=== PATIENT | male | born 1965 | race Caucasian/White ===

== ENCOUNTER 2024-06-17 08:25 | Outpatient (OUT) | payer OTHER, SELFPAY ==
--- NOTE | 2024-06-17 08:36 | CT_ITS ---
[address] [address] Patient Name: JILL GANDHI MRN: [id number] date: 1965 Sex: M Assigned Patient Location: CT Current Patient Location: Accession/Order Number: [id number] Exam Date: 06/17/2024 08:45 Report Date: 06/18/2024 06:19 At the request of: HASMUKH DUNLAP Procedure: CT lung screening low-dose EXAMINATION: CT lung screening low-dose HISTORY: Smoker COMPARISON: No relevant comparison available. TECHNIQUE: Axial, Coronal, and Sagittal images were created without the administration of IV contrast material. Dose reduction techniques were achieved by using automated exposure control and/or adjustment of mA and/or kV according to patient size and/or use of iterative reconstruction technique. FINDINGS: LUNGS: 1.6 cm rounded nodule with lobular margins within left lower lobe superior segment adjacent the spine, with thin curvilinear stranding opacity/scarring extending to the lateral left lung base. Multiple small very faint groundglass opacities scattered within the lungs; infiltrates versus atelectasis. PLEURA: No mass, effusion, or pneumothorax. VASCULATURE: No abnormality. JENIFFER: Calcified left hilar lymph nodes suggestive of chronic granulomatous disease. MEDIASTINUM: No mass or pathologic adenopathy. CARDIAC: No enlargement, pericardial thickening, or pericardial effusion. Coronary Artery calcifications: Coronary calcifications are mild. AORTA: No aneurysm or dissection. CHEST WALL: No mass or axillary adenopathy BONES: No bone lesion or fracture. LIMITED ABDOMEN: No suspicious findings. Limited images of the upper abdomen. OTHER: Negative. CT/CT lung screening low-dose IMPRESSION: 1. Lung-RADS Category 4B- Suspicious. Findings for which additional diagnostic testing and/ or tissue sampling is recommended. Chest CT with or without contrast, PET/CT and/ or tissue sampling depending on the * probability of malignancy and comorbidities. PET/CT may be used when there is a >= 8 mm solid component. 2. Left lower lobe 1.6 cm lobular mass; neoplasm versus granuloma. PET/CT recommended for further evaluation. Electronically authenticated by: JANETH LAMBERT Date: 06/18/2024 06:19
== END 2024-06-17 08:26 | disposition home or self-care (01) ==
LOC: CT 08:30
PROVIDERS: PCP Nurse Practitioner; Visit Provider Nurse Practitioner
DX: Z12.2 Encounter for screening for malignant neoplasm of respiratory organs (principal); X39.01XA Exposure to radon, initial encounter
CPT/HCPCS: 71271

== ENCOUNTER 2024-07-29 15:17 | Outpatient (OUT) | payer OTHER, SELFPAY ==
--- OUTSIDE RECORDS SUMMARY | 2024-07-29 15:39 | XMS_ITS | CCD ---
Author Organization [facility] Care Team Providers Care [employer] Tailor Name Role Phone Valerio Varma DO Primary Care Provider VALERIO VARMA Attending Unavailable FURLONG, VALERIO Mary Referring Unavailable FURLONG, VALERIO Mary Primary Care Unavailable FURLONGVALERIO Referring Unavailable FURLOCHASE, VALERIO Mary Primary Care Unavailable Guadalupe, Mikayla Chavez Primary Care Physician [phone] Guadalupe, Mikayla Chavez Attending Unavailable Guadalupe, Mikayla Chavez Admitting Unavailable Guadalupe, Mikayla L Attending Unavailable Guadalupe, Mikayla L Admitting Unavailable Guadalupe, Mikayla L Attending Unavailable Guadalupe, Mikayla L Attending Unavailable Guadalupe, Mikayla L Attending Unavailable Guadalupe, Mikayla L Attending Unavailable Guadalupe, Mikayla L Admitting Unavailable Guadalupe, Mikayla L Admitting Unavailable Guadalupe, Mikayla L Attending Unavailable Guadalupe, Mikayla L Attending Unavailable Medications Current Medications Medication Drug Class(es) Dates Sig (Normalized) Sig (Original) amitriptyline hydrochloride 75 mg oral tablet (15 sources) Tricyclic Antidepressant Start: 01-30-2024 take 1 tablet by mouth once daily at bedtime amitriptyline 75 mg oral tablet 75 mg = 1 tab(s), Oral, Once a day (at bedtime), # 90 tab(s), Refills(s) 4, Pharmacy: [id number], 179.3, cm, 01/04/24 11:40:00 EDT, Height/Length Dosing, 74.3, kg, 01/04/24 11:40:00 EDT, Weight Dosing Start Date: 01/30/24 Status: Ordered Start: 11-27-2023 take 1 tablet by gagandeep th once daily at bedtime amitriptyline 75 mg oral tablet 75 mg = 1 tab(s), Oral, Once a day (at bedtime), # 30 tab(s), Refills(s) 0 Start Date: 11/27/23 Status: Ordered Start: 07-04-2023 End: 09-08-2023 take 1 tablet by mouth once daily amitriptyline (ELAVIL) 75 mg tablet Take 1 tablet (75 mg total) by mouth nightly. 90 tablet 0 09/08/2023 Active busPIRone hydrochloride 15 mg oral tablet (10 sources) Start: 01-30-2024 take 1 tablet by mouth three times daily busPIRone 15 mg Tab 15 mg = 1 tab(s), Oral, TID, # 270 tab(s), Refills(s) 4, Pharmacy: [id number], 179.3, cm, 01/04/24 11:40:00 EDT, Height/Length Dosing, 74.3, kg, 01/04/24 11:40:00 EDT, Weight Dosing Start Date: 01/30/24 Status: Ordered Start: 11-27-2023 take 1 tablet by gagandeep three times daily busPIRone 15 mg Tab 15 mg = 1 tab(s), Oral, TID, # 90 tab(s), Refills(s) 0 Start Date: 11/27/23 Status: Ordered Start: 09-08-2023 End: 09-08-2023 take 1 tablet by mouth three times daily busPIRone (BUSPAR) 15 mg tablet Take 1 tablet (15 mg total) by mouth 3 (three) times a day. 270 tablet 0 09/08/2023 Active ibuprofen 800 mg oral tablet (3 sources) Nonsteroidal Anti-inflammatory Drug Start: 10-23-2023 take 1 tablet by mouth every eight hours as needed for pain ibuprofen (MOTRIN) 800 mg tablet Take 1 tablet (800 mg total) by mouth every 8 (eight) hours as needed for pain. 90 tablet 2 10/23/2023 Active omeprazole 40 mg delayed release oral capsule (2 sources) Proton Pump Inhibitor Start: 01-04-2024 take 1 capsule by mouth once daily omeprazole 40 mg Cap-DR 40 mg = 1 cap(s), Oral, Daily, # 90 cap(s), Refills(s) 3, Pharmacy: [id number], 179.3, cm, 01/04/24 11:40:00 EDT, Height/Length Dosing, 74.3, kg, 01/04/24 11:40:00 EDT, Weight Dosing Start Date: 01/04/24 Status: Ordered 24 hr propranolol hydrochloride 60 mg extended release oral capsule (10 sources) beta-Adrenergic Wes Start: 01-30-2024 take 1 capsule by mouth once daily propranolol 60 mg Cap-ER 60 mg = 1 cap(s), Oral, Daily, # 90 cap(s), Refills(s) 4, Pharmacy: [id number], 179.3, cm, 01/04/24 11:40:00 EDT, Height/Length Dosing, 74.3, kg, 01/04/24 11:40:00 EDT, Weight Dosing Start Date: 01/30/24 Status: Ordered Start: 11-27-2023 take 1 capsule by [facility] once daily propranolol 60 mg Cap-ER 60 mg = 1 cap(s), Oral, Daily, Refills(s) 0 Start Date: 11/27/23 Status: Ordered Start: 07-13-2023 End: 09-08-2023 take 1 capsule by mouth every twenty-four hours in the morning propranolol LA (INDERAL LA) 60 mg 24 hr capsule Take 1 capsule (60 mg total) by mouth in the morning. 90 capsule 1 09/08/2023 Active sertraline 100 mg oral tablet (10 sources) Serotonin Reuptake Inhibitor Start: 12-26-2023 take 1 tablet by mouth once daily Zoloft 100 mg Tab 100 mg = 1 tab(s), Oral, Daily, # 90 tab(s), Refills(s) 1, Pharmacy: [id number], 179.3, cm, 11/27/23 9:30:00 EDT, Height/Length Dosing, 75.8, kg, 11/27/23 9:30:00 EDT, Weight Dosing Start Date: 12/26/23 Status: Ordered Start: 11-27-2023 take 1 tablet by [facility] once daily Zoloft 100 mg Tab 100 mg = 1 tab(s), Oral, Daily, # 30 tab(s), Refills(s) 0 Start Date: 11/27/23 Status: Ordered Start: 09-08-2023 End: 02-09-2024 take 1 tablet by mouth in the morning sertraline (ZOLOFT) 100 mg tablet Take 1 tablet (100 mg total) by mouth in the morning. 90 tablet 0 09/08/2023 Active SUMAtriptan (9 sources) Serotonin-1b and Serotonin-1d Receptor Agonist Start: 01-23-2024 SUMAtriptan 6 mg/0.5 mL SubQ Dolly 6 mg, SubCutaneous, Once, PRN Migraine headache, may repeat once in 1 hour if needed, # 2 EA, Refills(s) 5, Pharmacy: [facility], 179.3, cm, 01/04/24 11:40:00 EDT, Height/Length Dosing, 74.3, kg, 01/04/24 11:40:00 EDT, Weight Dosing Start Date: 01/23/24 Status: Ordered Start: 11-27-2023 sumatriptan 4 mg/0.5 mL subcutaneous kit 4 mg, SubCutaneous, PRN Migraine headache, Refills(s) 0 Start Date: 11/27/23 Status: Ordered Start: 04-10-2023 SUMAtriptan colón ccinate 4 mg/0.5 mL cartridge Indications: Chronic migraine without aura without status migrainosus, not intractable At onset of headache. May repeat x 1 if no relief 4 mL 5 04/10/2023 Active traMADol hydrochloride 50 mg oral tablet (11 sources) Opioid Agonist Start: 04-24-2024 take 1 tablet by mouth once daily as needed for pain traMADOL 50 mg Tab See Instructions, TAKE 1 TABLET BY MOUTH DAILY NEEDED FOR PAIN Duration: 30 days Dx Code: M25.552, M25.512, # 30 tab(s), Refills(s) 0, Pharmacy: [id number], 179.3, cm, 01/04/24 11:40:00 EDT, Height/Length Dosing, 74.3, kg, 01/04/24 11:40:00 EDT, Weight Dosing Start Date: 04/24/24 Status: Ordered Start: 11-27-2023 take 1 tablet by gagandeep th once daily as needed for pain traMADOL 50 mg Tab See Instructions, TAKE 1 TABLET BY MOUTH DAILY NEEDED FOR PAIN, # 30 tab(s), Refills(s) 0, Pharmacy: [id number], 179.3, cm, 11/27/23 9:30:00 EDT, Height/Length Dosing, 75.8, kg, 11/27/23 9:30:00 EDT, Weight Dosing Start Date: 11/27/23 Status: Ordered Start: 10-07-2023 take 1 tablet by gagandeep th once daily as needed for pain traMADoL (ULTRAM) 50 mg tablet Indications: Chronic migraine without aura without status migrainosus, not intractable Take 1 tablet (50 mg total) by mouth daily as needed for pain. 7 tablet 0 10/07/2023 Active Start: 09-08-2023 End: 10-07-2023 take 1 tablet by mouth every six hours as needed for pain traMADoL (ULTRAM) 50 mg tablet Indications: Chronic migraine without aura without status migrainosus, not intractable Take 1 tablet (50 mg total) by mouth every 6 (six) hours as needed for pain. 28 tablet 0 09/08/2023 10/07/2023 Discontinued Problems Active Problems Problem Classification Problem Date Documented Date Episodic/Chronic Anxiety disorders (14 sources) Anxiety; Translations: [Anxiety disorder, unspecified] Onset: 04-10-2023 04-10-2023 Chronic Esophageal disorders (2 sources) Gastroesophageal reflux disease 01-04-2024 Chronic Headache; including migraine (14 sources) Migraine without aura, not refractory ; Translations: [Chronic migraine without aura, not intractable, without status migrainosus] Onset: 04-10-2023 09-08-2023 Chronic Malaise and fatigue (2 sources) Fatigue 05-21-2024 Episodic Mood disorders (8 sources) Depressive disorder; Translations: [Depression] Onset: 04-10-2023 04-10-2023 Chronic Other non-traumatic joint disorders (3 sources) Hip pain 11-27-2023 Episodic Other skin disorders (3 sources) Change in skin lesion 11-27-2023 Episodic Residual codes; unclassified (6 sources) Hypersomnia; Translations: [Hypersomnia, unspecified] Onset: 04-10-2023 04-10-2023 Chronic Residual codes; unclassified (2 sources) Tobacco user 05-21-2024 Episodic Spondylosis; intervertebral disc disorders; other back problems (4 sources) Cervical spondylosis; Translations: [Spondylosis without myelopathy or radiculopathy, cervical region] Onset: 10-23-2023 10-23-2023 Chronic Spondylosis; intervertebral disc disorders; other back problems (3 sources) Cervicalgia; Translations: [Neck pain] Onset: 10-23-2023 10-23-2023 Episodic Substance-related disorders (6 sources) Cigarette smoker ; Translations: [Nicotine dependence, cigarettes, uncomplicated] Onset: 04-10-2023 04-10-2023 Chronic Unclassified (1 source) Medication recheck Onset: 10-23-2023 Unclassified (3 sources) Pain of left shoulder region 11-27-2023 Unclassified (14 sources) Patient encounter status 11-27-2023 Unclassified (2 sources) Exposure to radon 05-21-2024 Past or Other Problems Problem Classification Problem Date Documented Da te Episodic/Chronic Mood disorders (6 sources) Mood disorders Onset: 04-10-2023 04-10-2023 Results Test Name Value Interpretation Reference Range Facility Ambulatory Visit Summaryon 1 08-24-2023 Ambulatory Visit Summary Ambulatory Visi t Summary JILL DELONG :1965 Visit Date:06/24/2024 Ambulatory Visit Instructions Your Diagnosis Smoker BMI 23.0-23.9, adult Your Care Team Attending Physician - Mikayla Hamilton Primary Care Physician - Mikayla Hamilton This Is Your Medications List amitriptyline (amitriptyline 75 mg oral tablet) busPIRone (busPIRone 15 mg Tab) omeprazole (omeprazole 40 mg Cap-DR) propranolol (propranolol 60 mg Cap-ER) sertraline (Zoloft 100 mg Tab) sumatriptan (SUMAtriptan 6 mg/0.5 mL SubQ Dolly) tramadol (traMADOL 50 mg Tab) Procedures Performed Surgery. Discharge Vitals Temperature (Temporal Artery) 36.4 ???C Heart Rate (Peripheral) 84 Respiratory Rate 20 Blood Pressure 128/84 Height 179.3 cm Height 71 in Weight 75.2 kg Weight 165.787 lb BMI 23.39 Medications What How Much When Why Instructions Unchanged amitriptyline (amitriptyline 75 mg oral tablet) 1 Tablets By Mouth Once a day (at bedtime) Unchanged busPIRone (busPIRone 15 mg Tab) 1 Tablets By Mouth 3 times a day Unchanged omeprazole (omeprazole 40 mg Cap-DR) 1 Capsules By Mouth Every day Acid reflux BMI 23.0-23.9, adult Smoker Marijuana use Unchanged propranolol (propranolol 60 mg Cap-ER) 1 Capsules By Mouth Every day Unchanged sertraline (Zoloft 100 mg Tab) 1 Tablets By Mouth Every day Unchanged sumatriptan (SUMAtriptan 6 mg/ 0.5 mL SubQ Dolly) 6 Milligram Subcutaneous Once as needed for Migraine headache may repeat once in 1 hour if needed Unchanged tramadol (traMADOL 50 mg Tab) See instructions TAKE 1 TABLET BY MOUTH DAILY NEEDED FOR PAIN Duration: 30 days Dx Code: M25.552, M25.512 Allergies No Known Allergies Problems Ongoing - Any problem that you are currently receiving treatment for. Acid reflux Anxiety Change in skin mole Exposure to radon Fatigue Left hip pain Left shoulder pain Migraines Panic disorder Screening for hyperlipidemia Screening for lung cancer Screening for prostate cancer Screening for thyroid disorder Wellness examination Patient Survey You may receive a survey via text or e-mail asking about your office visit. Please share your experience with us by completing your survey. We appreciate your feedback and thank you for choosing us for your care. Normal [facility] Family Medicine Office/Clini c Noteon 06-24-2024 Family Medicine Office/Clini c Note Family Medicine Office/Clinic Note HPI Staff Jill is a 58 old male presenting with discussing lab results History of Present Illness pt presents today to go over CT reults. Review of Systems PHQ Score Initial Depression Screen Score: 2 SCORE Physical Exam Vitals & Measurements T: 36.4 ???C(Temporal Artery) HR: 84(Peripheral) RR: 20 BP: 128/84 SpO2: 98% HT: 71 in HT: 179.3 cm WT: 75.2 kg WT: 165.787 lb BMI: 23.39 General: alert, no acute distress ENMT: oral mucosa moist, no pharyngeal erythema or exudate Cardiovascular: regular rate and rhythm, normal peripheral perfusion Respiratory: Lungs CTA, respirations non labored Extremities: no deformity, no trauma Neurological: oriented x 4, LOC appropriate for age, CN II-XII intact, motor strength equal & normal bilaterally, speech normal Assessment/Plan 1. Mass of lung, (R91.8: Other nonspecific abnormal finding of lung field)Abnormal CT scan, lung pt presents today to go over CT of lungs results. he has a suspicious mass that is requiring PET scan for further evaluation. pt would like to have it done at [facility]. Order faxed. they will get him scheduled for next Monday. will refer to oncology if needed Ordered: NM PET w/ CT Scan Skull Base to Midthigh 3. Smoker (F17.200: Nicotine dependence, unspecified, uncomplicated) consider not smoking Ordered: NM PET w/ CT Scan Skull Base to Midthigh 4. BMI 23.0-23.9, adult (Z68.23: Body mass index [BMI] 23.0-23.9, adult) BMI education Follow-up No qualifying data available Problem List/Past Medical History Ongoing Acid reflux Anxiety Change in skin mole Exposure to radon Fatigue Left hip pain Left shoulder pain Migraines Panic disorder Screening for hyperlipidemia Screening for lung cancer Screening for prostate cancer Screening for thyroid disorder Wellness examination Historical No qualifying data Procedure/Surgical History Surgery. Medications amitriptyline 75 mg oral tablet, 75 mg= 1 tab(s), Oral, Once a day (at bedtime), 4 refills busPIRone 15 mg Tab, 15 mg= 1 tab(s), Oral, TID, 4 refills omeprazole 40 mg Cap-DR, 40 mg= 1 cap(s), Oral, Daily, 3 refills propranolol 60 mg Cap-ER, 60 mg= 1 cap(s), Oral, Daily, 4 refills SUMAtriptan 6 mg/0.5 mL SubQ Dolly, 6 mg, SubCutaneous, Once, PRN, 5 refills traMADOL 50 mg Tab, See Instructions Zoloft 100 mg Tab, 100 mg= 1 tab(s), Oral, Daily, 1 refills Allergies No Known Allergies Social History Alcohol Never., 05/21/2024 Substance Abuse Past. Marijuana. 3-5 times per week. Previous treatment: Inpatient., 05/21/2024 Tobacco 5-9 cigarettes (between 1/4 to 1/2 pack)/day in last 30 days Tobacco Use:. Never Smokeless Tobacco Use:. Cigarettes, 06/24/2024 Family History Acute myocardial infarction: Father. Congestive heart failure: Mother. Immunizations Vaccine Date Status SARSCoV2 mRNA(tozinamer-simon -sucros) vac 12/28/[address] [facility] Comment on above: Result Comment: Elec tronically Signed By: Mikayla Hamilton\.br\Date and Time Signed: 06/24/24 12:27 EST Ambulatory Visit Summaryon 1 Ambulatory Visit Summary Ambulatory Visi t Summary JILL DELONG :1965 Visit Date:05/21/2024 Ambulatory Visit Instructions Your Diagnosis Fatigue Screening for lung cancer Exposure to radon Smoker BMI 22.0-22.9, adult Your Care Team Attending Physician - Mikayla Hamilton Primary Care Physician - Mikayla Hamilton This Is Your Medications List amitriptyline (amitriptyline 75 mg oral tablet) busPIRone (busPIRone 15 mg Tab) omeprazole (omeprazole 40 mg Cap-DR) propranolol (propranolol 60 mg Cap-ER) sertraline (Zoloft 100 mg Tab) sumatriptan (SUMAtriptan 6 mg/0.5 mL SubQ Dolly) tramadol (traMADOL 50 mg Tab) Procedures Performed Surgery. Discharge Vitals Temperature (Temporal Artery) 36.9 ?C Heart Rate (Peripheral) 78 Respiratory Rate 18 Blood Pressure 118/78 Height 179.3 cm Height 71 in Weight 73.5 kg Weight 161.7 lb BMI 22.86 Medications What How Much When Why Instructions Unchanged amitriptyline (amitriptyline 75 mg oral tablet) 1 Tablets By Mouth Once a day (at bedtime) Unchanged busPIRone (busPIRone 15 mg Tab) 1 Tablets By Mouth 3 times a day Unchanged omeprazole (omeprazole 40 mg Cap-DR) 1 Capsules By Mouth Every day Acid reflux BMI 23.0-23.9, adult Smoker Marijuana use Unchanged propranolol (propranolol 60 mg Cap-ER) 1 Capsules By Mouth Every day Unchanged sertraline (Zoloft 100 mg Tab) 1 Tablets By Mouth Every day Unchanged sumatriptan (SUMAtriptan 6 mg/ 0.5 mL SubQ Dolly) 6 Milligram Subcutaneous Once as needed for Migraine headache may repeat once in 1 hour if needed Unchanged tramadol (traMADOL 50 mg Tab) See instructions TAKE 1 TABLET BY MOUTH DAILY NEEDED FOR PAIN Duration: 30 days Dx Code: M25.552, M25.512 Medications and Immunizations Administered Given SARSCoV2 mRNA(toslimer-simon -sucros) vac, Allergies No Known Allergies Problems Ongoing - Any problem that you are currently receiving treatment for. Acid reflux Anxiety Change in skin mole Exposure to radon Fatigue Left hip pain Left shoulder pain Migraines Panic disorder Screening for hyperlipidemia Screening for lung cancer Screening for prostate cancer Screening for thyroid disorder Wellness examination Patient Survey You may receive a survey via text or e-mail asking about your office visit. Please share your experience with us by completing your survey. We appreciate your feedback and thank you for choosing us for your care. Normal [facility] CHEMISTRYOrdered By: SYSTEM SYSTEM on 05-21-2024 25-hydroxyvitamin D3 [Mass/Vol] 34.0 ng/mL Normal 30.0 - 100.0 ng/mL Remisol Chem Iron [Mass/Vol] 100 ug/dL Normal 35 - 153 mcg/dL Remisol Chem TSH Qn 2.20 m[IU]/L Normal 0.34 - 5.60 mcIU/mL Remisol Chem Family Medicine Office/Clini c Noteon 05-21-2024 Family Medicine Office/Clini c Note Family Medicine Office/Clinic Note HPI Staff Jill is a 58 year old male presenting with possible exposure to radon test home basement, 19X more than safe level Onset; 2 months he has been asleep all the time, headaches, very lethargic, stomach pain Poor appetite. constipation Pulled muscle last Monday he picked up dog to put into car and felt a muscle pull left side History of Present Illness pt presents today with fatigue, headache, stomach pain, poor appetite, dry BM Review of Systems PHQ Score Initial Depression Screen Score: 1 SCORE Physical Exam Vitals & Measurements T: 36.9 ?C(Temporal Artery) HR: 78(Peripheral) RR: 18 BP: 118/78 SpO2: 96% HT: 71 in HT: 179.3 cm WT: 73.5 kg WT: 161.7 lb BMI: 22.86 General: alert, no acute distress ENMT: oral mucosa moist, no pharyngeal erythema or exudate Cardiovascular: regular rate and rhythm, normal peripheral perfusion Respiratory: Lungs CTA, respirations non labored Extremities: no deformity, no trauma Neurological: oriented x 4, LOC appropriate for age, CN II-XII intact, motor strength equal & normal bilaterally, speech normal Assessment/Plan 1. Exposure to radon (X39.01XA: Exposure to radon, initial encounter) pt had someone come to his home and test for radon he was told it is 19% higher than it should be in his basement. will order Low dose CT of chest Ordered: Lab Specimen Collect [id number] 2. Fatigue (R53.83: Other fatigue) Will check labs today Ordered: CBC w/ Auto Diff Iron Level Lab Specimen Collect [id number] Thyroid Stimulating Hormone Vitamin D 25 Hydroxy 3. Screening for lung cancer (Z12.2: Encounter for screening for malignant neoplasm of respiratory organs) pt has never had low dose CT to screen for lung cancer. has been exposed to radon which can also cause lung cancer. Low dose CT order sent to [facility] Ordered: CBC w/ Auto Diff Iron Level Lab Specimen Collect [id number] Thyroid Stimulating Hormone Vitamin D 25 Hydroxy 4. Smoker (F17.200: Nicotine dependence, unspecified, uncomplicated) consider not smoking Ordered: CBC w/ Auto Diff Iron Level Lab Specimen Collect [id number] Thyroid Stimulating Hormone Vitamin D 25 Hydroxy 5. BMI 22.0-22.9, adult (Z68.22: Body mass index [BMI] 22.0-22.9, adult) BMI education given Ordered: CBC w/ Auto Diff Iron Level Lab Specimen Collect [id number] Thyroid Stimulating Hormone Vitamin D 25 Hydroxy Follow-up No qualifying data available Problem List/Past Medical History Ongoing Acid reflux Anxiety Change in skin mole Exposure to radon Fatigue Left hip pain Left shoulder pain Migraines Panic disorder Screening for hyperlipidemia Screening for lung cancer Screening for prostate cancer Screening for thyroid disorder Wellness examination Historical No qualifying data Procedure/Surgical History Surgery. Medications amitriptyline 75 mg oral tablet, 75 mg= 1 tab(s), Oral, Once a day (at bedtime), 4 refills busPIRone 15 mg Tab, 15 mg= 1 tab(s), Oral, TID, 4 refills omeprazole 40 mg Cap-DR, 40 mg= 1 cap(s), Oral, Daily, 3 refills propranolol 60 mg Cap-ER, 60 mg= 1 cap(s), Oral, Daily, 4 refills SUMAtriptan 6 mg/0.5 mL SubQ Dolly, 6 mg, SubCutaneous, Once, PRN, 5 refills traMADOL 50 mg Tab, See Instructions Zoloft 100 mg Tab, 100 mg= 1 tab(s), Oral, Daily, 1 refills Allergies No Known Allergies Social History Alcohol Never., 05/21/2024 Substance Abuse Past. Marijuana. 3-5 times per week. Previous treatment: Inpatient., 05/21/2024 Tobacco 5-9 cigarettes (between 1/4 to 1/2 pack)/day in last 30 days Tobacco Use:. Never Smokeless Tobacco Use:. Cigarettes, 05/21/2024 Family History Acute myocardial infarction: Father. Congestive heart failure: Mother. Immunizations Vaccine Date Status SARSCoV2 mRNA(tozinamer-simon -sucros) vac 12/28/2019 Given Normal [facility] Comment on above: Result Comment: Elec tronically Signed By: Mikayla Hamilton\.br\Date and Time Signed: 05/21/24 12:12 EDT HEMATOLOGYOrdered By: SYSTEM SYSTEM on 05-21-2024 Basophils/100 WBC (Bld) 0.8 % Normal 0.0 - 2.0 % Remisol Heme Basophils/Leukocytes Auto (B ld) [Pure # fraction] 0.1 E9/L Normal 0.0 - 0.2 E9/L Remisol Heme Eosinophils (Bld) [#/Vol] 0.2 E9/L Normal 0. 0 - 0.5 E9/L Remisol Heme Eosinophils/100 WBC (Bld) 3.2 % Normal 0. 0 - 8.0 % Remisol Heme Erythrocyte distribution wid th (RBC) [Ratio] 13.6 % Normal 10.9 - 14.2 % Remisol Heme Hematocrit (Bld) [Volume fraction] 45.1 % Normal 37.7 - 49.0 % Remisol Heme Hemoglobin (Bld) [Mass/Vol] 15.2 g/dL Normal 13.5 - 17.5 gm/dL Remisol Heme Lymphocytes (Bld) [#/Vol] 1.7 E9/L Normal 1. 0 - 4.0 E9/L Remisol Heme Lymphocytes/100 WBC (Bld) 24.8 % Normal 14 .0 - 50.0 % Remisol Heme MCH (RBC) [Entitic mass] 31.3 pg Normal 27. 0 - 34.0 pg Remisol Heme MCHC (RBC) [Mass/Vol] 33.8 g/dL Normal 31.4 - 36.0 gm/dL Remisol Heme MCV (RBC) [Entitic vol] 92.7 fL Normal 80.0 - 100.0 fL Remisol Heme Monocytes (Bld) [#/Vol] 0.4 E9/L Normal 0.2 - 1.0 E9/L Remisol Heme Monocytes/100 WBC (Bld) 6.1 % Normal 4.0 - 14.0 % Remisol Heme Neutrophils (Bld) [#/Vol] 4.6 E9/L Normal 2. 0 - 7.5 E9/L Remisol Heme Neutrophils/100 WBC (Bld) 65.1 % Normal 36 .0 - 75.0 % Remisol Heme Platelet mean volume (Bld) [Entitic vol] 7.7 fL Normal 6.4 - 10.8 fL Remisol Heme Platelets (Bld) [#/Vol] 340.0 E9/L Normal 150. 0 - 500.0 E9/L Remisol Heme RBC (Bld) [#/Vol] 4.9 E12/L Normal 4.3 - 5.9 E12/L Remisol Heme WBC corrected for nucl RBC A uto (Bld) [#/Vol] 7.0 E9/L Normal 4.0 - 11.0 E9/L Remisol Heme Vitamin D 25 Hydroxyon 05-21 25-hydroxyvitamin D3 [Mass/Vol] 34.0 ng/mL Normal 30.0 -100.0 [facility] Comment on above: Performed By: #### [id number] #### [facility] [address] [place] [address] Ambulatory Visit Summaryon 0 01-04-2024 Ambulatory Visit Summary JILL DELONG :1965 Visit Date:01/04/2024 Ambulatory Visit Instructions Your Diagnosis Acid reflux BMI 23.0-23.9, adult Smoker Marijuana use Your Care Team Attending Physician - Mikayla Hamilton Primary Care Physician - Mikayla Hamilton This Is Your Medications List amitriptyline (amitriptyline 75 mg oral tablet) busPIRone (busPIRone 15 mg Tab) propranolol (propranolol 60 mg Cap-ER) sertraline (Zoloft 100 mg Tab) sumatriptan (SUMAtriptan 6 mg/0.5 mL SubQ Dolly) tramadol (traMADOL 50 mg Tab) Procedures Performed Surgery. Discharge Vitals Heart Rate (Peripheral) 82 Respiratory Rate 18 Blood Pressure 122/84 Height 179.3 cm Height 71 in Weight 74.30 kg Weight 163.46 lb BMI 23.11 Medications What How Much When Instructions Unchanged amitriptyline (amitriptyline 75 mg oral tablet) 1 Tablets By Mouth Once a day (at bedtime) Unchanged busPIRone (busPIRone 15 mg Tab) 1 Tablets By Mouth 3 times a day Unchanged propranolol (propranolol 60 mg Cap-ER) 1 Capsules By Mouth Every day Unchanged sertraline (Zoloft 100 mg Tab) 1 Tablets By Mouth Every day Unchanged sumatriptan (SUMAtriptan 6 mg/ 0.5 mL SubQ Dolly) 6 Milligram Subcutaneous Once as needed for Migraine headache may repeat once in 1 hour if needed Unchanged tramadol (traMADOL 50 mg Tab) See instructions TAKE 1 TABLET BY MOUTH DAILY NEEDED FOR PAIN Allergies No Known Allergies Problems Ongoing - Any problem that you are currently receiving treatment for. Acid reflux Anxiety Change in skin mole Left hip pain Left shoulder pain Migraines Panic disorder Screening for hyperlipidemia Screening for prostate cancer Screening for thyroid disorder Wellness examination Patient Survey You may receive a survey via text or e-mail asking about your office visit. Please share your experience with us by completing your survey. We appreciate your feedback and thank you for choosing us for your care. [facility]is [facility] Family Medicine Office/Clini c Noteon 01-04-2024 Family Medicine Office/Clini c Note HPI Staff Jill is a 58 year old male presenting for sick visit Pt had called in 01/03/24 with c/o weakness, fatigue,chest pain and SOB that started in Monday. He stated he no longer is having chest pain. He had refused to go to the ER he thinks he has Pneumonia again Onset: 12/31/23Monday had chest pain and then on Monday had chest pain. denies any sinus symptoms. History of Present Illness pt had episode of chest pain on Monday Review of Systems PHQ Score Initial Depression Screen Score: 0 SCORE Physical Exam Vitals & Measurements HR: 82(Peripheral) RR: 18 BP: 122/84 SpO2: 96% HT: 71 in HT: 179.3 cm WT: 74.30 kg WT: 163.46 lb BMI: 23.11 General: alert, no acute distress ENMT: oral mucosa moist, no pharyngeal erythema or exudate Cardiovascular: regular rate and rhythm, normal peripheral perfusion Respiratory: Lungs CTA, respirations non labored Extremities: no deformity, no trauma Neurological: oriented x 4, LOC appropriate for age, CN II-XII intact, motor strength equal & normal bilaterally, speech normal Assessment/Plan 1. Acid reflux (K21.9: Gastro-esophageal reflux disease without esophagitis) pt having worsening reflux. he feels that may have been what caused the chest pain on monday. denies pain today. will send omeprazole. RTC as needed Ordered: omeprazole, 40 mg = 1 cap(s), Oral, Daily, # 90 cap(s), Refills(s) 3, Pharmacy: [facility], 179.3, cm, 01/04/24 11:40:00 EDT, Height/Length Dosing, 74.3, kg, 01/04/24 11:40:00 EDT, Weight Dosing 2. BMI 23.0-23.9, adult (Z68.23: Body mass index [BMI] 23.0-23.9, adult) BMI education complete Ordered: omeprazole, 40 mg = 1 cap(s), Oral, Daily, # 90 cap(s), Refills(s) 3, Pharmacy: [facility], 179.3, cm, 01/04/24 11:40:00 EDT, Height/Length Dosing, 74.3, kg, 01/04/24 11:40:00 EDT, Weight Dosing 3. Smoker (F17.200: Nicotine dependence, unspecified, uncomplicated) consider not smoking Ordered: omeprazole, 40 mg = 1 cap(s), Oral, Daily, # 90 cap(s), Refills(s) 3, Pharmacy: [facility], 179.3, cm, 01/04/24 11:40:00 EDT, Height/Length Dosing, 74.3, kg, 01/04/24 11:40:00 EDT, Weight Dosing 4. Marijuana use (F12.90: Cannabis use, unspecified, uncomplicated) consider not smoking Ordered: omeprazole, 40 mg = 1 cap(s), Oral, Daily, # 90 cap(s), Refills(s) 3, Pharmacy: [facility], 179.3, cm, 01/04/24 11:40:00 EDT, Height/Length Dosing, 74.3, kg, 01/04/24 11:40:00 EDT, Weight Dosing Follow-up No qualifying data available Problem List/Past Medical History Ongoing Acid reflux Anxiety Change in skin mole Left hip pain Left shoulder pain Migraines Panic disorder Screening for hyperlipidemia Screening for prostate cancer Screening for thyroid disorder Wellness examination Historical No qualifying data Procedure/Surgical History Surgery. Medications amitriptyline 75 mg oral tablet, 75 mg= 1 tab(s), Oral, Once a day (at bedtime) busPIRone 15 mg Tab, 15 mg= 1 tab(s), Oral, TID omeprazole 40 mg Cap-DR, 40 mg= 1 cap(s), Oral, Daily, 3 refills propranolol 60 mg Cap-ER, 60 mg= 1 cap(s), Oral, Daily SUMAtriptan 6 mg/0.5 mL SubQ Dolly, 6 mg, SubCutaneous, Once, PRN, 1 refills traMADOL 50 mg Tab, See Instructions Zoloft 100 mg Tab, 100 mg= 1 tab(s), Oral, Daily, 1 refills Allergies No Known Allergies Social History Substance Abuse Current, Marijuana, 3-5 times per week, Ready to change: No., 01/04/2024 Tobacco 5-9 cigarettes (between 1/4 to 1/2 pack)/day in last 30 days Tobacco Use:. Cigarettes, Ready to change: No. Household tobacco concerns: No., 01/04/2024 Family History Acute myocardial infarction: Father. Congestive heart failure: Mother. [facility] Comment on above: Result Comment: Elec tronically Signed By: Mikayla Hamilton\Date and Time Signed: 01/04/24 12:54 EDT Physician Referralon Physician Referral [id number] 916#1.00TIFF [facility] Medication Consenton 024 Medication Consent [id number] 7A#1.00TIFF [facility] Reminderson 11-28-2023 Reminders -- From: Mikayla Hamilton To: [facility] - Clinical; Sent: 11/28/2023 08:55:38 EDT Show up: 11/28/2023 08:56:00 EDT Subject: Ambulatory Reminder Due Date/Time: 11/29/2023 08:55:00 EDT labs are normal Results: Date Result Name Ind Value Ref Range 11/27/2023 10:11 WBC 6.7 E9/L (4.0 - 11.0) 11/27/2023 10:11 RBC 4.6 E12/L (4.3 - 5.9) 11/27/2023 10:11 HGB 14.0 gm/dL (13.5 - 17.5) 11/27/2023 10:11 Hct 42.2 % (37.7 - 49.0) 11/27/2023 10:11 MCV 92.6 fL (80.0 - 100.0) 11/27/2023 10:11 MCH 30.7 pg (27.0 - 34.0) 11/27/2023 10:11 MCHC 33.1 gm/dL (31.4 - 36.0) 11/27/2023 10:11 RDW 13.7 % (10.9 - 14.2) 11/27/2023 10:11 Platelet 330.0 E9/L (150.0 - 500.0) 11/27/2023 10:11 MPV 7.7 fL (6.4 - 10.8) 11/27/2023 10:11 Neutro Auto 72.0 % (36.0 - 75.0) 11/27/2023 10:11 Lymph Auto 18.1 % (14.0 - 50.0) 11/27/2023 10:11 [place] Auto 6.2 % (4.0 - 14.0) 11/27/2023 10:11 Eos Auto 2.8 % (0.0 - 8.0) 11/27/2023 10:11 Basophil Auto 0.9 % (0.0 - 2.0) 11/27/2023 10:11 Neutro Absolute 4.8 E9/L (2.0 - 7.5) 11/27/2023 10:11 Lymph Absolute 1.2 E9/L (1.0 - 4.0) 11/27/2023 10:11 [place] Absolute 0.4 E9/L (0.2 - 1.0) 11/27/2023 10:11 Eos Absolute 0.2 E9/L (0.0 - 0.5) 11/27/2023 10:11 Basophil Absolute 0.1 E9/L (0.0 - 0.2) 11/27/2023 10:11 Glucose Lvl 106 mg/dL (55 - 199) 11/27/2023 10:11 BUN ((H)) 22 mg/dL (5 - 21) 11/27/2023 10:11 Creatinine 0.9 mg/dL (0.5 - 1.3) 11/27/2023 10:11 eGFR 99 mL/min/1.73 m2 (>=59 - ) 11/27/2023 10:11 BUN/Creat Ratio ((H)) 24 (10 - 20) 11/27/2023 10:11 Sodium Lvl 137 mmol/L (135 - 145) 11/27/2023 10:11 Potassium Lvl 4.5 mmol/L (3.5 - 5.3) 11/27/2023 10:11 Chloride 105 mmol/L (101 - 111) 11/27/2023 10:11 CO2 27 mmol/L (21 - 31) 11/27/2023 10:11 AGAP 10 mEq/L (6 - 16) 11/27/2023 10:11 Calcium Lvl 9.0 mg/dL (8.9 - 11.1) 11/27/2023 10:11 Alk Phos 54 Int._Unit/L (21 - 98) 11/27/2023 10:11 ALT 12 Int._Unit/L (6 - 46) 11/27/2023 10:11 AST 20 Int._Unit/L (5 - 43) 11/27/2023 10:11 Total Protein 6.9 gm/dL (6.0 - 7.8) 11/27/2023 10:11 Albumin Lvl 4.1 gm/dL (3.3 - 5.0) 11/27/2023 10:11 Globulin 2.8 gm/dL (1.4 - 4.0) 11/27/2023 10:11 A/G Ratio 1.5 (1.1 - 2.2) 11/27/2023 10:11 Bili Total 0.4 mg/dL (0.0 - 1.1) 11/27/2023 10:11 Chol 167 mg/dL (120 - 200) 11/27/2023 10:11 Trig 57 mg/dL ( - <=149) 11/27/2023 10:11 HDL 52 mg/dL 11/27/2023 10:11 LDL Direct 120 mg/dL ( - <=129) 11/27/2023 10:11 VLDL 11 mg/dL (7 - 40) 11/27/2023 10:11 TSH 1.26 mcIU/mL (0.34 - 5.60) 11/27/2023 10:11 PSA Scrn Tot. 0.5 ng/mL (0.1 - 3.5) pt notified [facility] Transfer Inon 11-28-2023 Transfer In [id number] 16#1.00TIFF [facility] Ambulatory Visit Summaryon 0 11-27-2023 Ambulatory Visit Summary JILL DELONG :1965 Visit Date:11/27/2023 Ambulatory Visit Instructions Your Diagnosis Wellness examination Screening for hyperlipidemia Screening for thyroid disorder Screening for prostate cancer Left hip pain Change in skin mole Left shoulder pain BMI 23.0-23.9, adult Smoker Your Care Team Attending Physician - Mikayla Hamilton Primary Care Physician - Mikayla Hamilton This Is Your Medications List amitriptyline (amitriptyline 75 mg oral tablet) busPIRone (busPIRone 15 mg Tab) propranolol (propranolol 60 mg Cap-ER) sertraline (Zoloft 100 mg Tab) sumatriptan (sumatriptan 4 mg/0.5 mL subcutaneous kit) Procedures Performed Surgery. Discharge Vitals Heart Rate (Peripheral) 68 Respiratory Rate 18 Blood Pressure 126/74 Height 179.3 cm Height 71 in Weight 75.8 kg Weight 166.76 lb BMI 23.58 Medications What How Much When Instructions Unchanged amitriptyline (amitriptyline 75 mg oral tablet) 1 Tablets By Mouth Once a day (at bedtime) Unchanged busPIRone (busPIRone 15 mg Tab) 1 Tablets By Mouth 3 times a day Unchanged propranolol (propranolol 60 mg Cap-ER) 1 Capsules By Mouth Every day Unchanged sertraline (Zoloft 100 mg Tab) 1 Tablets By Mouth Every day Unchanged sumatriptan (sumatriptan 4 mg/ 0.5 mL subcutaneous kit) 4 Milligram Subcutaneous As needed for Migraine headache Allergies No Known Allergies Problems Ongoing - Any problem that you are currently receiving treatment for. Anxiety Change in skin mole Left hip pain Left shoulder pain Migraines Panic disorder Screening for hyperlipidemia Screening for prostate cancer Screening for thyroid disorder Wellness examination Patient Survey You may receive a survey via text or e-mail asking about your office visit. Please share your experience with us by completing your survey. We appreciate your feedback and thank you for choosing us for your care. Normal [facility] Auth for Release of Medical Recordson 11-27-2023 Auth for Release of Medical Records [id number] 02#1.00TIFF Normal [facility] CBC w/ Auto Diffon 4 Basophils/100 WBC (Bld) 0.9 % Normal 0.0-2.0 [facility] Comment on above: Performed By: #### 1 [id number], 3945808, 2779372, 72312419, 0239200, 7875823 #### [facility] [address] [place] [address] Basophils/Leukocytes Auto (B ld) [Pure # fraction] 0.1 E9/L Normal 0.0-0.2 [facility] Comment on above: Performed By: #### 1 1931765, 3474638, 9829265, 99594705, 8175087, 9328661 #### [facility] [address] [place] [address] Eosinophils (Bld) [#/Vol] 0.2 E9/L Normal 0.0-0.5 [facility] Comment on above: Performed By: #### 1 7518139, 0596525, 5780433, 65507704, 9313321, 9141731 #### [facility] [address] [place] [address] Eosinophils/100 WBC (Bld) 2.8 % Normal 0.0-8.0 [facility] Comment on above: Performed By: #### 1 2294011, 2577874, 1474442, 36706078, 4460666, 4197402 #### [facility] [address] [place] [address] Erythrocyte distribution wid th (RBC) [Ratio] 13.7 % Normal 10.9-14.2 [facility] Comment on above: Performed By: #### 1 1711172, 0889673, 7051226, 53972902, 9274281, 0142712 #### [facility] [address] [place] [address] Hematocrit (Bld) [Volume fraction] 42.2 % Normal 37.7-49.0 [facility] Comment on above: Performed By: #### 1 4010344, 7028695, 3960332, 33632489, 9302442, 4291115 #### [facility] [address] [place] [address] Hemoglobin (Bld) [Mass/Vol] 14.0 g/dL Normal 13.5-17. 5 [facility] Comment on above: Performed By: #### 1 6136172, 9561072, 1054919, 75062929, 4555956, 0810404 #### [facility] [address] [place] [address] Lymphocytes (Bld) [#/Vol] 1.2 E9/L Normal 1.0-4.0 [facility] Comment on above: Performed By: #### 1 9783971, 8370700, 4271290, 35389286, 8507160, 5152869 #### [facility] [address] [place] [address] Lymphocytes/100 WBC (Bld) 18.1 % Normal 14.0-50.0 [facility] Comment on above: Performed By: #### 1 8349284, 9573946, 5226131, 89319349, 1048274, 8335073 #### [facility] [address] [place] [address] MCH (RBC) [Entitic mass] 30.7 pg Normal 27.0-34.0 [facility] Comment on above: Performed By: #### 1 9711586, 8371508, 0519744, 52019830, 7313997, 0005229 #### [facility] [address] [place] [address] MCHC (RBC) [Mass/Vol] 33.1 g/dL Normal 31.4-36.0 [facility] Comment on above: Performed By: #### 1 6721023, 8298482, 0434490, 05984300, 9764815, 9262466 #### [facility] [address] [place] [address] MCV (RBC) [Entitic vol] 92.6 fL Normal 80.0-100.0 [facility] Comment on above: Performed By: #### 1 0665568, 1926566, 2486587, 39884166, 4005751, 5526347 #### [facility] [address] [place] [address] Monocytes (Bld) [#/Vol] 0.4 E9/L Normal 0.2-1.0 [facility] Comment on above: Performed By: #### 1 0891341, 3675776, 0098479, 66997927, 9206902, 2479938 #### [facility] [address] [place] [address] Neutrophils (Bld) [#/Vol] 4.8 E9/L Normal 2.0-7.5 [facility] Comment on above: Performed By: #### 1 5949165, 8462446, 0568754, 26268589, 9286000, 9607375 #### [facility] [address] [place] [address] Neutrophils/100 WBC (Bld) 72.0 % Normal 36.0-75.0 [facility] Comment on above: Performed By: #### 1 1873267, 6012625, 6987194, 88632169, 9052983, 4358186 #### [facility] [address] [place] [address] Platelet mean volume (Bld) [Entitic vol] 7.7 fL Normal 6.4-10.8 [facility] Comment on above: Performed By: #### 1 3394200, 1326293, 9030012, 82463089, 6638840, 6204719 #### [facility] [address] [id number] Platelets (Bld) [#/Vol] 330.0 E9/L Normal 150. 0-500. 0 [facility] Comment on above: Performed By: #### 1 8855550, 2159368, 1229592, 85675216, 6289171, 0433671 #### [facility] [address] [place] [address] RBC (Bld) [#/Vol] 4.6 E12/L Normal 4.3-5.9 [facility] Comment on above: Performed By: #### 1 2899743, 9459948, 7629391, 49936727, 2347653, 0340179 #### [facility] [address] [place] [address] WBC corrected for nucl RBC A uto (Bld) [#/Vol] 6.7 E9/L Normal 4.0-11.0 [facility] Comment on above: Performed By: #### 1 9407598, 5895767, 5137239, 65560241, 9758453, 7813755 #### [facility] [address] [place] [address] CHEMISTRYOrdered By: SYSTEM SYSTEM on 11-27-2023 Albumin [Mass/Vol] 4.1 g/dL Normal 3.3 - 5.0 gm/dL Rem[facility] Chem Albumin/Globulin [Mass ratio] 1.5 {ratio} Normal 1.1 - 2.2 [facility] ALP [Catalytic activity/Vol] 54 [iU]/d Normal 21 - 98 Int._Unit/ L [facility] ALT No additional P-5'-P [Catalytic activity/Vol] 12 [iU]/d Normal 6 - 46 Int._Unit/ L [facility] Anion gap [Moles/Vol] 10 mmol/L Normal 6 - 16 mEq/L [facility] AST [Catalytic activity/Vol] 20 [iU]/d Normal 5 - 43 Int._Unit/ L [facility] Bilirubin [Mass/Vol] 0.4 mg/dL Normal 0.0 - 1 .1 mg/dL [facility] Calcium [Mass/Vol] 9.0 mg/dL Normal 8.9 - 11. 1 mg/dL [facility] Chloride [Moles/Vol] 105 mmol/L Normal 101 - 1 11 mmol/L [facility] Cholesterol [Mass/Vol] 167 mg/dL Normal 120 - 200 mg/dL [facility] Cholesterol in HDL [Mass/Vol] 52 mg/dL In valid Interpretation Code [facility] Comment on above: Result Comment: '>= 60 LOW RISK' '<= 40 HIGH RISK' Cholesterol in LDL [Mass/Vol] 120 mg/dL Normal <=129m g/dL [facility] Cholesterol in VLDL [Mass/Vol] 11 mg/dL Normal 7 - 40 mg/dL [facility] CO2 [Moles/Vol] 27 mmol/L Normal 21 - 31 mmol/L [facility] Creatinine [Mass/Vol] 0.9 mg/dL Normal 0.5 - 1.3 mg/dL [facility] eGFR 99 mL/min/1.73 m2 Normal >=59mL/min /1.73 m2 [facility] Globulin (S) [Mass/Vol] 2.8 g/dL Normal 1.4 - 4.0 gm/dL [facility] Glucose [Mass/Vol] 106 mg/dL Normal 55 - 199 mg/dL [facility] Potassium [Moles/Vol] 4.5 mmol/L Normal 3.5 - 5.3 mmol/L [facility] Prostate specific Ag [Mass/Vol] 0.5 ng/mL Normal 0.1 - 3.5 ng/mL [facility] Comment on above: Interpretive Data: T he concentration of PSA determined by different manufacturers can vary due to differences in assay methods and reagent specificity. Values obtained from different assay methods cannot be used interchangeably. The methodology used for this result was chemiluminescence using [employer]'s Access [employer] PSA reagent. Protein [Mass/Vol] 6.9 g/dL Normal 6.0 - 7.8 gm/dL [facility] Sodium [Moles/Vol] 137 mmol/L Normal 135 - 145 mmol/L [facility] Triglyceride [Mass/Vol] 57 mg/dL Normal <=149mg/dL R emisol Chem TSH Qn 1.26 m[IU]/L Normal 0.34 - 5.60 mcIU/mL [facility] Urea nitrogen [Mass/Vol] 22 mg/dL High 5 - 21 mg/dL [facility] Urea nitrogen/Creatinine [Ma ss ratio] 24 mg/mg High 10 - 20 [facility] CMPon 11-27-2023 Albumin [Mass/Vol] 4.1 g/dL Normal 3.3-5.0 [facility] Comment on above: Performed By: #### 1 3105778, 9952606, 6818547, 41116097, 0292496, 6329580 #### [facility] [address] [id number] Albumin/Globulin (S) [Mass c onc ratio] 1.5 Normal 1.1-2.2 [facility] Comment on above: Performed By: #### 1 4179494, 5599966, 9637357, 67306840, 8775011, 2969268 #### [facility] [address] [place] [address] ALP [Catalytic activity/Vol] 54 Int._Unit/L Normal 21- 98 [facility] Comment on above: Performed By: #### 1 5819399, 3042643, 1892940, 84431928, 4342454, 9559553 #### [facility] [address] [place] [address] ALT No additional P-5'-P [Catalytic activity/Vol] 12 Int._Unit/L Normal 6-46 [facility] Comment on above: Performed By: #### 1 2245533, 1538665, 4027605, 39148534, 3039208, 5211977 #### [facility] [address] [place] [address] Anion gap [Moles/Vol] 10 mmol/L Normal 6-16 [facility] Comment on above: Performed By: #### 1 3895089, 5848748, 0705315, 00052421, 3185496, 0594693 #### [facility] [address] [place] [address] AST [Catalytic activity/Vol] 20 Int._Unit/L Normal 5-4 3 [facility] Comment on above: Performed By: #### 1 4825231, 1360181, 3069218, 99525087, 5602293, 4457260 #### [facility] [address] [place] [address] Bilirubin [Mass/Vol] 0.4 mg/dL Normal 0.0-1.1 [facility] Comment on above: Performed By: #### 1 2793405, 0638516, 0402335, 24750699, 5763397, 5477771 #### [facility] [address] [place] [address] Calcium [Mass/Vol] 9.0 mg/dL Normal 8.9-11.1 [facility] Comment on above: Performed By: #### 1 7382593, 1655003, 1941440, 61938395, 7166471, 2340832 #### [facility] [address] [place] [address] Chloride [Moles/Vol] 105 mmol/L Normal 101-111 [facility] Comment on above: Performed By: #### 1 5637300, 5778640, 9532865, 26973952, 9392113, 6273245 #### [facility] [address] [place] [address] CO2 [Moles/Vol] 27 mmol/L Normal 21-31 [facility] Comment on above: Performed By: #### 1 2066436, 8000126, 0857493, 87573217, 7737071, 9024532 #### [facility] [address] [place] [address] Creatinine [Mass/Vol] 0.9 mg/dL Normal 0.5-1.3 [facility] Comment on above: Performed By: #### 1 8601548, 8125682, 3854778, 88460307, 4753770, 3597204 #### [facility] [address] [place] [address] Globulin (S) [Mass/Vol] 2.8 g/dL Normal 1.4-4.0 [facility] Comment on above: Performed By: #### 1 9154287, 1821988, 9651595, 90839085, 3116592, 4325297 #### [facility] [address] [place] [address] Glucose [Mass/Vol] 106 mg/dL Normal 55-199 [facility] Comment on above: Performed By: #### 1 3236611, 8376734, 1966409, 52887200, 6790016, 4669927 #### [facility] [address] [place] [address] Potassium [Moles/Vol] 4.5 mmol/L Normal 3.5-5.3 [facility] Comment on above: Performed By: #### 1 4967143, 2839705, 7702547, 58144013, 5867891, 6224629 #### [facility] [address] [place] [address] Protein [Mass/Vol] 6.9 g/dL Normal 6.0-7.8 [facility] Comment on above: Performed By: #### 1 0530846, 5672560, 8683010, 82221901, 1746677, 1700763 #### [facility] [address] [place] [address] Sodium [Moles/Vol] 137 mmol/L Normal 135-145 [facility] Comment on above: Performed By: #### 1 1323942, 7310971, 7314379, 66995450, 7569726, 7985013 #### [facility] [address] [place] [address] Urea nitrogen [Mass/Vol] 22 mg/dL High 5-21 [facility] Comment on above: Performed By: #### 1 8641584, 8518290, 3544217, 10649216, 4670694, 9927501 #### [facility] [address] [place] [address] Urea nitrogen/Creatinine [Ma ss ratio] 24 No Units High 10-20 [facility] Comment on above: Performed By: #### 1 5347496, 7863052, 7694782, 12446701, 4074887, 1087704 #### [facility] [address] [place] [address] Family Medicine Office/Clini c Noteon 11-27-2023 Family Medicine Office/Clini c Note HPI Staff Jill is a 57 year old male presenting to establish care Establish Care: History: Any previous diagnosis: Anxiety, panic disorder, HTN migraines History of seeing any specialist: neurologist for migraines When was your last doctors visit: Last provider: Eve Sosa Any recent labs: nothing in the last year Health Maintenance UTD: Colonoscopy: 2019 normal PSA: hasn't had blood work Acute: Current issues/complaints: Mole to right shoulder would like looked at, denies any pain or discomfort. [place] in [place] all imagine done at Chronic pain: has had testing done MRI of Brain and left shoulder. 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 Pt also states he has 3 tears in left rotator cuff. Does have same pain to right shoulder but hasn't had any imagine done. 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 is due for annual wellness labs. c/o hip and shoulder pain. will obtain records from previous PCP in [place]. Review of Systems PHQ Score Initial Depression Screen Score: 2 SCORE Physical Exam Vitals & Measurements HR: 68(Peripheral) RR: 18 BP: 126/74 SpO2: 98% HT: 71 in HT: 179.3 cm WT: 75.8 kg WT: 166.76 lb BMI: 23.58 General: alert, no acute distress ENMT: oral mucosa moist, no pharyngeal erythema or exudate Cardiovascular: regular rate and rhythm, normal peripheral perfusion Respiratory: Lungs CTA, respirations non labored Extremities: no deformity, no trauma Neurological: oriented x 4, LOC appropriate for age, CN II-XII intact, motor strength equal & normal bilaterally, speech normal limited ROM left shoulder mole right shoulder is raised, rough in texture, and dark, flaking off Assessment/Plan 1. Wellness examination (Z00.00: Encounter for general adult medical examination without abnormal findings) pt presents today for wellness visit. has a few complaints but otherwise doing well. has callouses and pain in big toe but wants to hold off on podiatry referral for now. shoulder and hip pain but will hold off until fall for ortho referral. labs drawn in office today. RTC 3 months for med check (tramadol) Ordered: CBC w/ Auto Diff Comprehensive Metabolic Panel Drug Screen POC 23615 Lab Specimen Collect 03522 Lipid Panel PSA Screen, Total Thyroid Stimulating Hormone 2. Screening for hyperlipidemia (Z13.220: Encounter for screening for lipoid disorders) lipid in office today Ordered: CBC w/ Auto Diff Comprehensive Metabolic Panel Drug Screen POC 49134 Lab Specimen Collect 39306 Lipid Panel PSA Screen, Total Thyroid Stimulating Hormone 3. Screening for thyroid disorder (Z13.29: Encounter for screening for other suspected endocrine disorder) TSH in office today Ordered: CBC w/ Auto Diff Comprehensive Metabolic Panel Drug Screen POC 05041 Lab Specimen Collect 79282 Lipid Panel PSA Screen, Total Thyroid Stimulating Hormone 4. Screening for prostate cancer (Z12.5: Encounter for screening for malignant neoplasm of prostate) PSA in office today Ordered: CBC w/ Auto Diff Comprehensive Metabolic Panel Drug Screen POC 01116 Lab Specimen Collect 27022 Lipid Panel PSA Screen, Total Thyroid Stimulating Hormone 5. Left hip pain (M25.552: Pain in left hip) pt has had left hip pain for years. just now getting medical insurance is currently working a seasonal job. in the fall he will want a referral to ortho Ordered: Drug Screen POC 09862 Lab Specimen Collect 67082 6. Change in skin mole (D22.9: Melanocytic nevi, unspecified) pt has mole on right shoulder that has changed in size and texture. will refer to [facility] Ordered: [facility] External Ambulatory Referral 7. Left shoulder pain (M25.512: Pain in left shoulder) pt was told by previous PCP that he had a tear in rotator cuff. pt is currently working a seasonal job. and can not miss work. will return to office in the fall for referral to ortho. will obtain results of all diagnostic testing done previously. pt was previously prescribed tramadol for the pain but since moving to [place] has not found a provider to prescribe it to him. drug screen obtained. OARRS report reviewed. medication agreement signed. Will return in 3 months for med check visit. 8. BMI 23.0-23.9, adult (Z68.23: Body mass index [BMI] 23.0-23.9, adult) BMI education complete Ordered: CBC w/ Auto Diff Comprehensive Metabolic Panel Lipid Panel PSA Screen, Total Thyroid Stimulating Hormone 9. Smoker (F17.200: Nicotine dependence, unspecified, uncomplicated) consider not smoking Ordered: CBC w/ Auto Diff Comprehensive Metabolic Panel Lipid Panel PSA Screen, Total Thyroid Stimulating Hormone Orders: tramadol, See Instructions, TAKE 1 TABLET BY MOUTH DAILY NEEDED FOR PAIN, # 30 tab(s), Refills(s) 0, Pharmacy: [facility] (more content not included)... Normal [facility] Comment on above: Result Comment: Elec tronically Signed By: Mikayla Hamilton\.br\Date and Time Signed: 11/27/23 12:57 EDT HEMATOLOGYOrdered By: SYSTEM SYSTEM on 11-27-2023 Basophils/100 WBC (Bld) 0.9 % Normal 0.0 - 2.0 % Remisol Heme Basophils/Leukocytes Auto (B ld) [Pure # fraction] 0.1 E9/L Normal 0.0 - 0.2 E9/L [facility] Heme Eosinophils (Bld) [#/Vol] 0.2 E9/L Normal 0. 0 - 0.5 E9/L [facility] Eosinophils/100 WBC (Bld) 2.8 % Normal 0. 0 - 8.0 % [facility] Erythrocyte distribution wid th (RBC) [Ratio] 13.7 % Normal 10.9 - 14.2 % [facility] Hematocrit (Bld) [Volume fraction] 42.2 % Normal 37.7 - 49.0 % [facility] Hemoglobin (Bld) [Mass/Vol] 14.0 g/dL Normal 13.5 - 17.5 gm/dL [facility] Lymphocytes (Bld) [#/Vol] 1.2 E9/L Normal 1. 0 - 4.0 E9/L [facility] Lymphocytes/100 WBC (Bld) 18.1 % Normal 14 .0 - 50.0 % [facility] MCH (RBC) [Entitic mass] 30.7 pg Normal 27. 0 - 34.0 pg Rem[facility] Heme MCHC (RBC) [Mass/Vol] 33.1 g/dL Normal 31.4 - 36.0 gm/dL [facility] MCV (RBC) [Entitic vol] 92.6 fL Normal 80.0 - 100.0 fL [facility] Monocytes (Bld) [#/Vol] 0.4 E9/L Normal 0.2 - 1.0 E9/L [facility] Monocytes/100 WBC (Bld) 6.2 % Normal 4.0 - 14.0 % [facility] Neutrophils (Bld) [#/Vol] 4.8 E9/L Normal 2. 0 - 7.5 E9/L [facility] Neutrophils/100 WBC (Bld) 72.0 % Normal 36 .0 - 75.0 % [facility] Platelet mean volume (Bld) [Entitic vol] 7.7 fL Normal 6.4 - 10.8 fL [facility] Platelets (Bld) [#/Vol] 330.0 E9/L Normal 150. 0 - 500.0 E9/L [facility] RBC (Bld) [#/Vol] 4.6 E12/L Normal 4.3 - 5.9 E12/L [facility] WBC corrected for nucl RBC A uto (Bld) [#/Vol] 6.7 E9/L Normal 4.0 - 11.0 E9/L [facility] Heme Lipid Panelon 11-27-2023 Cholesterol [Mass/Vol] 167 mg/dL Normal 120-200 [facility] Comment on above: Performed By: #### 1 [id number], [id number], [id number], [id number], [id number], [id number] #### [facility] [address] [place] [address] Cholesterol in HDL [Mass/Vol] 52 mg/dL In valid Interpretation [facility] Comment on above: Result Comment: '>= 60 LOW RISK' '<= 40 HIGH RISK' Performed By: #### 1 [id number], [id number], [id number], [id number], [id number], [id number] #### [facility] [address] [place] [address] Cholesterol in LDL [Mass/Vol] 120 mg/dL Normal <=129 [facility] Comment on above: Performed By: #### 1 [id number], [id number], [id number], [id number], [id number], [id number] #### [facility] [address] [place] [address] Cholesterol in VLDL [Mass/Vol] 11 mg/dL Normal 7-40 [facility] Comment on above: Performed By: #### 1 [id number], 8050090, [id number], [id number], [id number], [id number] #### [facility] [address] [place] [address] Triglyceride [Mass/Vol] 57 mg/dL Normal <=149 [facility] Comment on above: Performed By: #### 1 [id number], [id number], [id number], [id number], [id number], [id number] #### [facility] [address] [place] [address] PSA Screen, Totalon 11-27-19 Prostate specific Ag [Mass/Vol] 0.5 ng/mL Normal 0.1- 3.5 [facility] Comment on above: Result Comment: The concentration of PSA determined by different manufacturers can vary due to differences in assay methods and reagent specificity. Values obtained from different assay methods cannot be used interchangeably. The methodology used for this result was chemiluminescence using [employer]'s Access Hybritech PSA reagent. Performed By: #### 1 [id number], [id number], 6653758, [id number], 4575009, [id number] #### [facility] [address] [place] [address] TSHon 11-27-2023 TSH Qn 1.26 m[IU]/L Normal 0.34-5.60 [facility] Comment on above: Performed By: #### 1 [id number], [id number], 3247597, [id number], 4690555, [id number] #### [facility] [address] [place] [address] eGFRon 11-27-2023 eGFR 99 mL/min/1.73 m2 Normal >=59 [facility] Comment on above: Order Comment: Order added by Discern Expert. Performed By: #### 1 [id number], [id number], 6931464, [id number], [id number], [id number] #### [facility] [address] [place] [address] DRUG SCREEN, URINEon 024 AMPHETAMINE/METHAMP Negative Normal NEG [facility] Comment on above: Result Comment: AMPH /METH screening cut off = 1000 ng/mL Performed By: #### D COLÓN #### [facility] ([id number]) [address] [place] [address] BARBITURATES Negative Normal NEG [facility] Comment on above: Result Comment: Nubia iturates screening cut off value = 200 ng/mL Performed By: #### D COLÓN #### [facility] ([id number]) [address], [address] [place] [address] BENZODIAZEPINES Negative Normal NEG [facility] Comment on above: Result Comment: Andrea odiazepines screening cut off value = 200 ng/mL Performed By: #### D COLÓN #### [facility] ([id number]) [address], [address] [place] [address] CANNABINOIDS Positive Abnormal NEG [facility] Comment on above: Result Comment: Conf irmation available upon request. Cannabinoids/THC screening cut off value = 50 ng/mL Performed By: #### D COLÓN #### [facility] ([id number]) [address], [address] [place] [address] COCAINE METABOLITE Negative Normal NEG [facility] Comment on above: Result Comment: Coca ine screening cut off value = 300 ng/mL Performed By: #### D COLÓN #### [facility] ([id number]) [address], [address] [place] [address] ECSTASY Negative Normal NEG [facility] Comment on above: Result Comment: Ecst asy screening cut off value = 500 ng/mL This report is intended for use in clinical monitoring or management of patients. Performed By: #### D COLÓN #### [facility] ([id number]) [address] [place] [address] METHADONE Negative Normal NEG [facility] Comment on above: Result Comment: Meth adone screening cut off value = 300 ng/mL. Performed By: #### D COLÓN #### [facility] ([id number]) [address] [place] [address] OPIATES Negative Normal NEG [facility] Comment on above: Result Comment: Opia rosa screening cut off value = 300 ng/mL NOTE: This test is used for the detection of codeine, hydrocodone (>1000 ng/mL), morphine and hydromorphone (>900 ng/mL) in urine. Performed By: #### D COLÓN #### [facility] ([id number]) [address] [place] [address] OXYCODONE Negative Normal NEG [facility] Comment on above: Result Comment: Oxyc odone screening cut off value = 300 ng/mL NOTE: This test is used for the detection of oxycodone and oxymorphone in urine. Performed By: #### D COLÓN #### [facility] ([id number]) [address] [place] [address] PHENCYCLIDINE Negative Normal NEG [facility] Comment on above: Result Comment: Phen cyclidine screening cut off value = 25 ng/mL Performed By: #### D COLÓN #### [facility] ([id number]) [address] [place] [address] Drug Screen, Urineon 024 Amphetamines Screen method >1000 ng/mL Ql (U) Negative Negative^N [facility] Comment on above: AMPH/METH screening cut off = 1000 ng/mL Barbiturates Screen Ql (U) Negative N egative^N [facility] Comment on above: Barbiturates screeni ng cut off value = 200 ng/mL Benzodiazepines Ql (U) Negative Negat renate^N [facility] Comment on above: Benzodiazepines scre ening cut off value = 200 ng/mL Cocaine Ql (U) Negative Negative^N [facility] Comment on above: Cocaine screening cu t off value = 300 ng/mL Interpretation and review of laboratory results Abnormal [facility] Methadone Screen Ql (U) Negative Nega tive^N [facility] Comment on above: Methadone screening cut off value = 300 ng/mL. Methylenedioxymethamphetamin e Screen Ql (U) Negative Negative^N [facility] Comment on above: Ecstasy screening cu t off value = 500 ng/mL This report is intended for use in clinical monitoring or management of patients. Opiates Screen Ql (U) Negative Negati ve^N [facility] Comment on above: Opiates screening cu t off value = 300 ng/mL NOTE: This test is used for the detection of codeine, hydrocodone (>1000 ng/mL), morphine and hydromorphone (>900 ng/mL) in urine. oxyCODONE Ql (U) Negative Negative^N [facility] Comment on above: Oxycodone screening cut off value = 300 ng/mL NOTE: This test is used for the detection of oxycodone and oxymorphone in urine. Phencyclidine Screen method >25 ng/mL Ql (U) Negative Negative^N [facility] Comment on above: Phencyclidine screen ing cut off value = 25 ng/mL Tetrahydrocannabinol Screen method >50 ng/mL Ql (U) Positive Abnormal Negative^N [facility] Comment on above: Confirmation availab le upon request. Cannabinoids/THC screening cut off value = 50 ng/mL [facility] Vital Signs Date Time Vital Sign Value Performing Clinician Facility 10-23-2023 08:41-0400 Body height 177.8 cm Valerio Varma DO Work Phone: [facility] 10-23-2023 08:41-0400 Body mass index (BMI) [Ratio] 24.06 kg/m2 [facility] 10-23-2023 08:41-0400 Body temperature 97.81 [degF] Valerio Hartleyng DO Work Phone: [facility] 10-23-2023 08:41-0400 Body weight 76.07 kg Valerio Maldonadolong DO Work Phone: [facility] 10-23-2023 08:41-0400 Diastolic blood pressure 82 mm[Hg] Valerio Hartleyng DO Work Phone: [facility] 10-23-2023 08:41-0400 Heart rate 61 /min Valerio Hartleyng DO Work Phone: [facility] 10-23-2023 08:41-0400 SaO2% (BldA) [Mass fraction] 96 % Valerio Hartleyng DO Work Phone: [facility] 10-23-2023 08:41-0400 Systolic blood pressure 122 mm[Hg] Valerio Varma DO Work Phone: [facility] Encounters Encounter Date Encounter Type Care Provider Facility Start: 06-24-2024 End: 06-24-2024 ambulatory Mikayla L Guadalupe Facility:[facility] Start: 05-21-2024 End: 05-21-2024 Lab Drop off Mikayla L Guadalupe [facility] Start: 05-21-2024 End: 05-21-2024 ambulatory Mikayla L Guadalupe Facility:[facility] Start: 01-04-2024 End: 01-04-2024 ambulatory Mikayla L Guadalupe Facility:[facility] Start: 11-27-2023 End: 11-27-2023 Lab Drop off Mikayla L Guadalupe [facility] Start: 11-27-2023 End: 11-27-2023 ambulatory Mikayla L Guadalupe Facility:[facility] Start: 11-22-2023 ambulatory Mikayla Guadalupe Facility:[facility] Start: 10-26-2023 Telephone encounter Bertha Berg CMA [facility] Start: 10-23-2023 End: 10-24-2023 ambulatory [facility] Start: 10-23-2023 End: 10-23-2023 ambulatory [facility] Start: 10-23-2023 End: 10-23-2023 Office outpatient visit 25 minutes Valerio Maldonadotavareschase DO Work Phone: [facility] Comment on above: Chronic migraine wit hout aura without status migrainosus, not intractable (Primary Dx); Neck pain; Anxiety; Recurrent major depressive disorder, in full remission (CMS-HCC); Cervical spondylosis Start: 10-06-2023 Refill Valerioroya stone DO Work Phone: [facility] Comment on above: Chronic migraine wit hout aura without status migrainosus, not intractable Start: 09-08-2023 Refill Josue Jacques [facility] Comment on above: Chronic migraine wit hout aura without status migrainosus, not intractable (Primary Dx) Start: 09-08-2023 Refill Valerio Mary Naeem ng DO Work Phone: [facility] Procedures Date Procedure Procedure Detail Performing Clinician Start: 04-10-2023 Adult depression screening assessment Josue Jacques CMA Surgical procedure Mikayla Schw ab Plan of Treatment Date Care Activity Detail Author Start: 10-22-2024 Adult BMI Screening Adult BMI Screen ing [facility] Start: 10-22-2024 Tobacco Screening Tobacco Screening [facility] Start: 04-10-2024 Adult BMI Screening Adult BMI Screen ing [facility] Start: 04-10-2024 Depression Screening Depression Scre ening [facility] Start: 04-10-2024 Tobacco Screening Tobacco Screening [facility] Start: 01-29-2024 End: 01-29-2024 Patient encounter procedure 01/29/2024 8:30 AM EDT [facility] [address] [place] [address] Valerio Varma, DO [address], [place] [address] [facility] Start: 10-29-2023 Influenza vaccination Influenza Vacc ine [facility] Comment on above: Postponed from 03/31 (Patient Refused) Start: 10-23-2023 End: 10-23-2023 Patient encounter procedure 10/23/2023 8:50 AM EDT [facility] [address] [place] [address] Valerio Varma, DO [address], [place] [address] [facility] Start: 03-31-2023 Influenza vaccination Influenza Vacc ine [facility] Start: 11-27-2015 Administration of varicella zoster vaccine Zoster (Shingles) Vaccine (1 of 2) [facility] Start: 2010 Screening for malign ant neoplasm of colon Colon Cancer Screening 5 Year Sigmoidoscopy [facility] Start: 1984 DTaP,Tdap and Td Vaccines (1 - Tdap) DTaP,Tdap and Td Vaccines (1 - Tdap) [facility] Start: 1965 Tobacco Counseling Tobacco Counselin ely [facility] traMADol [Mass/volum e] in Urine Tramadol,urine Lab Routine Chronic migraine without aura without status migrainosus, not intractable Neck pain 10/23/2023 4:03 PM EDT [facility] End: 10-22-2024 Tramadol,urine Tramadol,urine Lab Routine Chronic migraine without aura without status migrainosus, not intractable Neck pain 1 Occurrences starting 10/23/2023 until 10/22/2024 [facility] Work Phone: Comment on above: 1 Occurrences starti ng 10/23/2023 until 10/22/2024 Immunizations Immunization Date Immunization Notes Care Provider Joshua casiano 12-28-2019 SARS-CoV-2 mRNA (ijelffxdmhe-pdpa-dbivw se) vaccine Mikayla Butcher [facility] Payers Date Payer Category Payer Medicaid [id number] 2023 Medicaid [employer] [place] [id number] 2023-Present [phone] [address] [address] [place] [address] [id number] 1965 Unknown [id number] 1965 Unknown [id number] 1965 Unknown [id number] 1965 Unknown [id number] 1965 Unknown [id number] 1965 Unknown [id number] 1965 Unknown [id number] 1965 Unknown [id number] 1965 Unknown [id number] Social History Date Type Detail Facility Start: 04-10-2023 Tobacco smoking stat us [facility] Smokes tobacco daily [facility] History of tobacco use Cigarette Smoker P [facility] Start: 04-10-2023 End: 10-21-2023 Cigarettes smoked current (pack per day) - Reported 0.5 [facility] Start: 04-10-2023 Tobacco use and exposure Smoke less tobacco non-user [facility] Start: 04-10-2023 End: 10-23-2023 Alcohol intake Ex-drinker (finding) [facility] Start: 04-10-2023 End: 10-21-2023 Social connection and isolation panel [facility] Do you belong to any clubs or organizations such as baptism groups, unions, fraternal or athletic groups, or school groups? No [facility] Are you now , , , , never or living with a partner? Living with partner [facility] How often to you hav e a drink containing alcohol? Never [facility] How many standard dr inks containing alcohol do you have on a typical day? Patient does not drink [facility] Do you feel stress - tense, restless, nervous, or anxious, or unable to sleep at night because your mind is troubled all the time - these days [OSQ] Only a little [facility] Start: 1965 Sex Assigned At Not on file P [facility] Start: 04-10-2023 Sexual orientation Homosexual (findi ng) [facility] Start: 11-27-2023 End: 05-21-2024 Tobacco smoking status Light tobacco smoker (finding) [facility] Clinical Notes 09-08-2023 to 10-26-2023 Telephone Encounter - Bertha Berg, RICK - 10/26/2023 4:07 PM EDTTelephone Encounter - Valerio Varma DO - 10/26/2023 4:07 PM EDTTelephone Encounter - Bertha Berg CMA - 10/26/2023 4:07 PM EDT Note Date & Type Note Facility 10-26-2023 Miscellaneous Notes Formattin g of this note might be different from the original. I called and spoke with the patient and he understands. He wants to know if that means you are not going to give him the Toradol. He said up front he used THC. He feels like he is being attacked by you. He has had headaches for 50 years and nothing has helped but the Tramadol. He has tried Nurtec and Ubelvy and it has not worked. Also, you documented that all you had was an xray and not the MRI's He signed a record release so we should not have a problem getting the MRI results. Did we even try to get them? Someone from here told him to go to [employer] and put in his review of us and so far, we are not getting any good howell from him. He didn't say anything yesterday to me that he was taking THC when I told him we needed a controlled substance agreement and urine drug test. There was nothing in his past history when he first came that he used THC and I don't recall that conversation but maybe he did. If he had a medical marijuana card and getting it through the state that is ok and I would allow that, but buying it on the street is dangerous as it could be laced with fentanyl so its a different situation. I did get office notes from his previous PCP who said he had to choose b/w either cannabis or tramadol, but she wasn't going to give both. I did get the records and he had xrays of his neck and back which showed moderate arthritis in the neck and mild elsewhere. There was no MRI except of his shoulder. I'm still offering him treatment, there is no attacking here. I won't be blackmailed by threats of a bad review either documented in this encounter [facility] [employer] 10-26-2023 Telephone encount er Note I called and spoke with the patient and he understands. He wants to know if that means you are not going to give him the Toradol. He said up front he used THC. He feels like he is being attacked by you. He has had headaches for 50 years and nothing has helped but the Tramadol. He has tried Nurtec and Ubelvy and it has not worked. Also, you documented that all you had was an xray and not the MRI's He signed a record release so we should not have a problem getting the MRI results. Did we even try to get them? Someone from here told him to go to [employer] and put in his review of us and so far, we are not getting any good howell from him. [facility] 10-26-2023 Telephone encount er Note He didn't say anything yesterday to me that he was taking THC when I told him we needed a controlled substance agreement and urine drug test. There was nothing in his past history when he first came that he used THC and I don't recall that conversation but maybe he did. If he had a medical marijuana card and getting it through the state that is ok and I would allow that, but buying it on the street is dangerous as it could be laced with fentanyl so its a different situation. I did get office notes from his previous PCP who said he had to choose b/w either cannabis or tramadol, but she wasn't going to give both. I did get the records and he had xrays of his neck and back which showed moderate arthritis in the neck and mild elsewhere. There was no MRI except of his shoulder. I'm still offering him treatment, there is no attacking here. I won't be blackmailed by threats of a bad review either [facility] 10-26-2023 Miscellaneous Notes Formattin g of this note might be different from the original. ----- Message from Valerio Varma DO sent at 10/26/2023 10:01 AM EDT ----- His urine drug screen did show THC. I don't believe he has a medical MJ card as it doesn't show up on OARRS. He is using it for migraines. We need to try something different. He can come in for samples of Nurtec and Ubrelvy and see how those work. He does have neck pain. He can see pain management for that. Left a message for the patient to call us back documented in this encounter [facility] 10-26-2023 Telephone encount er Note ----- Message from Valerio Varma DO sent at 10/26/2023 10:01 AM EDT ----- His urine drug screen did show THC. I don't believe he has a medical MJ card as it doesn't show up on OARRS. He is using it for migraines. We need to try something different. He can come in for samples of Nurtec and Ubrelvy and see how those work. He does have neck pain. He can see pain management for that. [facility] 10-26-2023 Telephone encount er Note Left a message for the patient to call us back [facility] 10-23-2023 History of Presen t illness Narrative Images from the original note were not included. Subjective Patient ID: Jill Delong is a 57 y.o. male. Evangelista presents for a recheck. He has been using the tramadol for his neck pain to and was using about 1 a day. Back in [place] he had x-rays and an MRI of his neck due to the neck pain. He tried various muscle relaxers including Soma, Skelaxin and Robaxin with no benefits per patient. He said he had x-rays and MRI's done of his neck and left shoulder in the past in [place]. He is taking ibuprofen [id number] at home. He has recently just gotten on Medicaid. His mental health issues are currently stable. He is satisfied with the results. The following portions of the patient's history were reviewed and updated as appropriate: allergies, current medications, past family history, past medical history, past social history, past surgical history, problem list, and medication reconciliation was completed including current medication and post discharge medication. Review of Systems Constitutional: Negative. HENT: Negative. Eyes: Negative. Respiratory: Negative. Cardiovascular: Negative. Endocrine: Negative. Genitourinary: Negative. Musculoskeletal: Positive for neck pain. Skin: Negative. Neurological: Positive for headaches. Psychiatric/Behavioral: Positive for dysphoric mood and sleep disturbance. The patient is nervous/anxious. Objective Physical Exam Vitals reviewed. Constitutional: General: He is not in acute distress. Appearance: He is not ill-appearing. HENT: Head: Normocephalic. Eyes: Extraocular Movements: Extraocular movements intact. Conjunctiva/sclera: Conjunctivae normal. Cardiovascular: Rate and Rhythm: Normal rate and regular rhythm. Pulses: Normal pulses. Heart sounds: Normal heart sounds. No murmur heard. Pulmonary: Effort: Pulmonary effort is normal. No respiratory distress. Breath sounds: Normal breath sounds. Musculoskeletal: Cervical back: Tenderness present. Thoracic back: Tenderness present. Back: Neurological: General: No focal deficit present. Mental Status: He is alert and oriented to person, place, and time. Gait: Gait normal. Psychiatric: Mood and Affect: Mood normal. Behavior: Behavior normal. Thought Content: Thought content normal. Judgment: Judgment normal. Assessment/Plan Jill was seen today for medication recheck. Diagnoses and all orders for this visit: Chronic migraine without aura without status migrainosus, not intractable - Drug Screen, Urine; Future - Tramadol,urine; Future Patient is using tramadol for severe migraines with benefit. We will have him sign a controlled substance agreement and check a urine for drugs of abuse in presence of medication. The [place]ARRS/MAPPS database was reviewed today and found to be appropriate. No indication of medication diversion, or non compliance. Neck pain - Drug Screen, Urine; Future - Tramadol,urine; Future Patient now relates a history of neck pain. He said he had x-rays and MRI done in [place]. After he left the office I did review his past records and only found x-rays which showed moderate degenerative changes of the cervical spine and mild degenerative changes of thoracic and lumbar spines. Anxiety Stable. Continue current regimen Recurrent major depressive disorder, in full remission ([facility]) Stable. Continue current regimen. Cervical spondylosis Moderate per x-ray. May use tramadol p.r.n. for neck pain. Add ibuprofen 800 mg 3 times a day as needed and needs to use that 1st before using tramadol. Other orders - ibuprofen (MOTRIN) 800 mg tablet; Take 1 tablet (800 mg total) by mouth every 8 (eight) hours as needed for pain. documented in this encounter [facility] 09-08-2023 Miscellaneous Notes Formattin g of this note might be different from the original. Rx's sent in. He is due for a recheck. He is on a controlled substance documented in this encounter [facility] 09-08-2023 Telephone encount er Note Rx's sent in. He is due for a recheck. He is on a controlled substance [facility] Evaluation + Plan note No data available for this section [facility] Evaluation note Diagnosis Chronic migraine without aura without status migrainosus, not intractable- Primary [facility] Chronic migraine without aura without status migrainosus, not intractable [facility] Chronic migraine without aura without status migrainosus, not intractable- Primary Neck pain Cervicalgia Anxiety Anxiety state, unspecified Recurrent major depressive disorder, in full remission ([facility]) Cervical spondylosis Cervical spondylosis without myelopathy [facility] No data available for this section [facility]ructionsNot on filedocumented in this encounter [facility]InstructionsNot on filedocumented in this encounter [facility] on [facility] on filedocumented in this encounter [facility] No data available for this section [facility] Summary Purpose Family History No Family History Records FoundNo Family History Records Found No data available for this section No data available for this section No data available for this section No Family History Records FoundNo Family History Records Found Advance Directives No Advanced Directives Records FoundNo Advanced Directives Records FoundNo Advanced Directives Records FoundNo Advanced Directives Records Found Additional Source Comments Care Teams (unrecognized sec tion and content) [employer] Relationship Specialty Start Date End Date Valerio Varma DO [address] [place] [address] PCP - General Family Medicine 04/10/23 [employer] Relationship Specialty Start Date End Date Valerio Varma DO [address], [place] [address] PCP - General Family Medicine 04/10/23 [employer] T[employer]or Relationship Specialty Start Date End Date Joelbelle Valerio ElyDO [address], [place] [address] PCP - General Family Medicine 04/10/23 Reason for Visit (unrecogniz ed section and content) Reason Comments Med Refill Reason Comments Medication recheck (unrecognized sect ion and content) No Status Records FoundNo Status Records FoundNo Status Records FoundNo Status Records Found INFORMATION SOURCE (unrecogn ized section and content) DATE CREATED AUTHOR 10/23/2023 [facility] DATE CREATED AUTHOR AUTHOR'S ORGANIZ ATION 10/24/2023 [facility] DATE CREATED AUTHOR AUTHOR'S ORGANIZ ATION 05/22/[address] [facility] DATE CREATED AUTHOR AUTHOR'S ORGANIZ ATION 06/27/[address] [facility] FOR RECORDS PERTAINING TO PATIENTS WHO ARE OR HAVE BEEN ENROLLED IN A CHEMICAL DEPENDENCY/SUBSTANCEABUSE PROGRAM, SOME INFORMATION MAY BE OMITTED. This clinical summary was aggregated from multiple sources. Caution should be exercised in using it in the provision of clinical care. This summary normalizes information from multiple sources, and as a consequence, information in this document may materially change the coding, format and clinical context of patient data. In addition, data may be omitted in some cases. CLINICAL DECISIONS SHOULD BE BASED ON THE PRIMARY CLINICAL RECORDS. [facility] [employer] [facility]. provides no warranty or guarantee of the accuracy or completeness of information in this document.
== END 2024-07-29 15:18 | disposition home or self-care (01) ==
LOC: PETCT 15:17
PROVIDERS: PCP Nurse Practitioner; Visit Provider Nurse Practitioner
DX: R91.8 Other nonspecific abnormal finding of lung field (principal); F17.200 Nicotine dependence, unspecified, uncomplicated
CPT/HCPCS: 78815; A9552